=== PATIENT | female | born 1965 | race Caucasian/White ===

== ENCOUNTER 2024-03-25 12:08 | Emergency (ER) | payer OTHER, SELFPAY ==
[2024-03-25] VITALS (10 sets, daily range): BP systolic 140–168; BP diastolic 67–86; PULSE 78–102; RESP 7–18; TEMP 36.5; O2SAT 94–100; BMI 34.3
--- NOTE | 2024-03-25 12:19 | DI.RAD.S_ITS ---
PROCEDURE: XR CHEST 1V INDICATIONS: Shortness of breath TECHNIQUE: One view of the chest was acquired. COMPARISON: None. FINDINGS: Surgical changes and devices: None. Lungs and pleura: Minimal left basilar atelectasis and or infiltrate Mediastinum: Mediastinal contours appear normal. Heart size is normal. Bones and chest wall: No suspicious bony lesions. Overlying soft tissues appear unremarkable. IMPRESSION: Minimal left basilar atelectasis and or infiltrate Approved by: Micheal Mariscal M.D. on 03/25/2024 at 11:59
--- NOTE | 2024-03-25 12:24 | EKG_ITS ---
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
[2024-03-25 12:43] LABS: Prothrombin Time 11.6 SECONDS (9.4-12.5)
[2024-03-25 12:46] LABS: Add Manual Diff / Slide Review NO; Basophils Absolute Auto 100 /uL (0-100); Basophils Percent Auto 1.2 % (0-2); Eosinophils Absolute Auto 200 /uL (0-450); Eosinophils Percent Auto 2.8 % (2-4); Hematocrit 41.5 % (36-46); Hemoglobin 13.7 g/dL (12.0-16.0); Lymphocytes Absolute Auto 800 /uL (1100-4500); Lymphocytes Percent Auto 14.5 % (25-40); Mean Corpuscular HGB Conc 33.1 % (30-36); Mean Corpuscular Hemoglobin 29.2 PG (26-34); Mean Corpuscular Volume 88.3 fL (80-100); Monocytes Absolute Auto 600 /uL (0-900); Monocytes Percent Auto 11.5 % (3-14); Neutrophils Absolute Auto 3900 /uL (1500-7000); Platelet Count 319 X10^3/uL (150-400); Red Blood Cell Count 4.71 X10^6/uL (4.0-5.2); Red Cell Distribution Width 13.7 % (11.6-14.8); White Blood Cell Count 5.6 X10^3/uL (4.5-11.0)
[2024-03-25 12:54] LABS: Alanine Aminotransferase 38 IU/L (<35); Albumin 4.9 g/dL (3.5-5.0); Albumin Globulin Ratio 1.4 (1.0-2.8); Alkaline Phosphatase 69 U/L (38-126); Aspartate Aminotransferase 32 IU/L (14-36); BUN Creatinine Ratio 26.8 (6-22); Bilirubin Total 0.4 mg/dL (0.2-1.3); Blood Urea Nitrogen 22 mg/dL (7-17); Calcium 9.9 mg/dL (8.4-10.2); Carbon Dioxide 27 mmol/L (22-32); Chloride 106 mmol/L (98-107); Estimated Glomerular Filt Rate > 60 mL/min (>60); Globulin 3.4 g/dL (1.7-4.1); Glucose 103 mg/dL (70-100); HEMOLYSIS < 15 (0-50); Lactate (Lactic Acid) 1.5 mmol/L (0.7-2.1); Potassium 4.2 mmol/L (3.4-5.1); Sodium 141 mmol/L (137-145); Total Protein 8.3 g/dL (6.3-8.2)
[2024-03-25 13:06] LABS: NT-proBNP (BNP-Adult 18+) 50 pg/mL (<125); Troponin I < 0.012 ng/mL (0.01-0.034)
--- NOTE | 2024-03-25 13:45 | ED.SOB ---
HPI - SOB/Dyspnea General Chief Complaint: Shortness of Breath/Dyspnea Stated Complaint: SOB, AMS Time Seen by Provider: 03/25/24 13:43 Source: patient, family, RN notes reviewed and old records reviewed Mode of arrival: Wheelchair Limitations: no limitations History of Present Illness HPI Narrative: 59-year-old female history of hypertension, asthma on Symbicort daily. Patient presents with complaint of increased tightness and wheezing feeling similar to her asthma exacerbations. States she has had subjective fevers at home not a lot of nasal congestion but has had a cough she states not really productive. No chest pain but does feel tight and wheezy in her chest like when she was had other asthma exacerbations. No nausea no vomiting. No diarrhea or constipation. Has a little bit of lower abdominal cramping. No dysuria urgency or frequency. States had a headache after she had her nasal swab but was not headaches before. Her and her significant other notes she seemed a little bit confused today could not really tell if she was awake or asleep this morning but has been conversant and normal this afternoon. Patient states she was never been hospitalized for her asthma but has been long stays in the emergency department before. States she was on Effexor XR 150 mg daily, lisinopril 10 mg daily and Zyrtec once daily. She was Symbicort daily and albuterol as needed. States she has been using it 3 or 4 times daily recently. No tobacco use but had secondhand exposure for about 23 years going up. Patient has had multiple surgeries for cervical cancer, bladder rupture appendectomy and joint and ligament tendon issues but no prior cardiac or lung surgeries. Reports an allergy to sulfa, cephalexin and voids tramadol secondary to SSRI usage. Denies any regular alcohol or recreational drugs. Patient does not currently have a local primary care physician has recently moved to the area. Related Data Previous Rx's Medication Instructions Recorded albuterol sulfate 2.5 mg/3 mL 2.5 mg (3 mL) inhalation Q4H PRN 03/25/24 (0.083 %) solution for nebulization shortness of breath or wheezing #90 mL azithromycin 250 mg tablet See Rx Instructions PO .COMPLEX #6 03/25/24 tabs benzonatate 200 mg capsule 200 mg PO TID PRN cough #14 caps 03/25/24 ipratropium 0.5 mg-albuterol 3 mg 3 ml inhalation QID PRN shortness 03/25/24 (2.5 mg base)/3 mL nebulization of breath or wheezing #90 mL soln nebulizer accessories #1 ea 03/25/24 prednisone 10 mg tablets in a dose See Rx Instructions PO .COMPLEX 03/25/24 pack #21 ea Allergies Allergy/AdvReac Type Severity Reaction Status Date / Time cephalexin [From Keflex] AdvReac Verified 03/25/24 12:12 morphine AdvReac Verified 03/25/24 12:12 Sulfa (Sulfonamide AdvReac Verified 03/25/24 12:12 Antibiotics) tramadol AdvReac Verified 03/25/24 12:13 Review of Systems Review of Systems ROS Unobtainable: All systems reviewed & are unremarkable except as noted in HPI and below Patient History Social History Smoking Status: Never smoker Smoking Status: Never smoker Exam Narrative Exam Narrative: GENERAL: Alert and oriented x three, female in mild distress HEENT: Head normocephalic, atraumatic, EOMI, pupils reactive, face symmetric, moist mucous membranes NECK: Supple, full range of motion CARDIOVASCULAR: Regular rate and rhythm without murmurs, rubs or gallops. No JVD. No edema bilateral lower extremities. RESPIRATORY: Breath sounds present bilaterally slightly decreased,, no wheezes rales or rhonchi. No tachypnea accessory muscle use. Patient speaks in full sentences. ABDOMEN: Soft, nontender. Normoactive bowel sounds all 4 quadrants. No guarding or rebound, rigidity, no mass : No CVA tenderness EXTREMITIES: Normal range of motion, no clubbing or edema. Neurovascularly intact NEUROLOGICAL: Cranial nerves II through XII grossly intact. Moving all extremities SKIN: Warm, dry, no petechiae, no rashes or lesions. Initial Vital Signs Initial Vital Signs: Vital Signs Temperature 97.7 F 03/25/24 12:13 Pulse Rate 87 03/25/24 12:13 Respiratory Rate 18 03/25/24 12:13 Blood Pressure 168/86 H 03/25/24 12:13 Pulse Oximetry 97 03/25/24 12:13 Oxygen Delivery Method Room Air 03/25/24 12:13 Course Orders Ordered: ED Orders 03/25/24 12:19 XR chest 1V Stat EKG-12 Lead Stat Measure peak expiratory flow ONCE RT Consult Eval and Treat NOW 03/25/24 12:30 Complete Blood Count AUTO DIFF Stat Comprehensive Metabolic Panel Stat Lactate (Lactic Acid) Stat NT-proBNP (BNP-Adult 18+) Stat Prothrombin Time INR Stat Troponin I Stat 03/25/24 12:45 Covid-19 + FLU A/B + RSV - PCR Stat Discontinued Medications Albuterol (Albuterol 2.5 Mg/3 Ml Neb (Adult)) 2.5 mg INH NOW ONE Stop: 03/25/24 15:16 Last Admin: 03/25/24 15:19 Dose: 2.5 mg Documented By: JOVANA Albuterol/Ipratropium (Albuterol/Ipratropium 3 Ml Ampul) 3 ml INH NOW ONE Stop: 03/25/24 14:24 Last Admin: 03/25/24 14:27 Dose: 3 ml Documented By: JOVANA Azithromycin (Azithromycin 250 Mg Tablet) 500 mg PO NOW ONE Stop: 03/25/24 14:24 Last Admin: 03/25/24 14:45 Dose: 500 mg Documented By: ROSE MARY Methylprednisolone (Methylprednisolone 125 Mg/2 Ml Vial) 125 mg IV NOW ONE Stop: 03/25/24 14:24 Last Admin: 03/25/24 14:45 Dose: 125 mg Documented By: ROSE MARY Vital Signs Vital signs: Vital Signs - 8 hr 03/25/24 12:13 03/25/24 12:34 03/25/24 12:34 Temperature 97.7 F Pulse Rate 87 78 Respiratory Rate 18 Blood Pressure 168/86 H 162/81 H Pulse Oximetry 97 97 Oxygen Delivery Method Room Air 03/25/24 13:00 03/25/24 13:00 03/25/24 13:30 Temperature Pulse Rate 85 Respiratory Rate 10 L Blood Pressure 149/77 H 147/81 H Pulse Oximetry 99 Oxygen Delivery Method 03/25/24 13:30 03/25/24 14:00 03/25/24 14:00 Temperature Pulse Rate 81 85 Respiratory Rate 7 L 10 L Blood Pressure 146/72 H Pulse Oximetry 97 97 Oxygen Delivery Method 03/25/24 14:30 03/25/24 14:31 03/25/24 14:31 Temperature Pulse Rate 82 82 Respiratory Rate 14 14 Blood Pressure 164/82 H Pulse Oximetry 99 100 Oxygen Delivery Method 03/25/24 15:00 03/25/24 15:00 03/25/24 15:30 Temperature Pulse Rate 91 H 93 H Respiratory Rate 14 15 Blood Pressure 140/74 Pulse Oximetry 96 97 Oxygen Delivery Method 03/25/24 15:30 03/25/24 16:00 03/25/24 16:00 Temperature Pulse Rate 102 H Respiratory Rate 14 Blood Pressure 152/70 H 143/67 H Pulse Oximetry 94 Oxygen Delivery Method MDM - SOB/Dyspnea Lab Data 03/25/24 12:30 03/25/24 12:30 Labs: Lab Results 03/25/24 03/25/24 Range/Units 12:30 12:45 WBC 5.6 (4.5-11.0) X10^3/uL RBC 4.71 (4.0-5.2) X10^6/uL Hgb 13.7 (12.0-16.0) g/dL Hct 41.5 (36-46) % MCV 88.3 (80-100) fL MCH 29.2 (26-34) PG MCHC 33.1 (30-36) % RDW 13.7 (11.6-14.8) % Plt Count 319 (150-400) X10^3/uL Neut % (Auto) 70.0 (50-75) % Lymph % (Auto) 14.5 L (25-40) % [place] % (Auto) 11.5 (3-14) % Eos % (Auto) 2.8 (2-4) % Baso % (Auto) 1.2 (0-2) % Neut # (Auto) 3900 (0894-7789) /uL Lymph # (Auto) 800 L (4660-4465) /uL [place] # (Auto) 600 (0-900) /uL Eos # (Auto) 200 (0-450) /uL Baso # (Auto) 100 (0-100) /uL PT 11.6 (9.4-12.5) SECONDS INR 1.0 (0.9-1.3) Sodium 141 (137-145) mmol/L Potassium 4.2 (3.4-5.1) mmol/L Chloride 106 (98-107) mmol/L Carbon Dioxide 27 (22-32) mmol/L BUN 22 H (7-17) mg/dL Creatinine 0.82 (0.52-1.04) mg/dL Estimated GFR > 60 (>60) mL/min BUN/Creatinine Ratio 26.8 H (6-22) Glucose 103 H (70-100) mg/dL Lactate 1.5 (0.7-2.1) mmol/L Calcium 9.9 (8.4-10.2) mg/dL Total Bilirubin 0.4 (0.2-1.3) mg/dL AST 32 (14-36) IU/L ALT 38 H (<35) IU/L Alkaline Phosphatase 69 (38-126) U/L Troponin I < 0.012 (0.01-0.034) ng/mL NT-Pro-B Natriuret Pep 50 (<125) pg/mL Total Protein 8.3 H (6.3-8.2) g/dL Albumin 4.9 (3.5-5.0) g/dL Globulin 3.4 (1.7-4.1) g/dL Albumin/Globulin Ratio 1.4 (1.0-2.8) SARS-CoV-2 (PCR) Negative (Negative) Influenza A (RT-PCR) Flu a negative (NEGATIVE) Influenza B (RT-PCR) Flu b negative (NEGATIVE) RSV (PCR) Negative (Negative) Imaging Data Chest x-ray: Radiologist's Impression: Close Chest X-Ray (Signed) Micheal Mariscal - 03/25/24 [place] [address] XRay Report Signed Patient: Guera Bear MR#: [id number] : 1965 Acct:[id number] Age/Sex: 59 / F Date of Service: 03/25/24 Loc: ED Accession Number: [id number] Procedure: XR chest 1V Ordering Provider: Dennise Retana D.O. PROCEDURE: XR CHEST 1V INDICATIONS: Shortness of breath TECHNIQUE: One view of the chest was acquired. COMPARISON: None. FINDINGS: Surgical changes and devices: None. Lungs and pleura: Minimal left basilar atelectasis and or infiltrate Mediastinum: Mediastinal contours appear normal. Heart size is normal. Bones and chest wall: No suspicious bony lesions. Overlying soft tissues appear unremarkable. IMPRESSION: Minimal left basilar atelectasis and or infiltrate Approved by: Micheal Mariscal M.D. on 03/25/2024 at 11:59 ECG Data Attestation: I personally reviewed and interpreted this ECG as follows: Prior ECG tracings: not available for review Interpretation: Sinus rhythm rate 85 [place] 184 QRS of 90 QTC of 449, no acute ST elevation nonspecific change. No prior for comparison. MDM Narrative Medical decision making narrative: Exam patient does have air movement, minimal wheeze had albuterol and DuoNeb had improvement in symptoms she was also given Solu-Medrol as well as azithromycin for pneumonia. EKG shows sinus rhythm nonspecific change no priors for comparison. Chest x-ray shows minimal left basilar atelectasis and/or infiltrate. White count of 5.6 hemoglobin of 13, platelets of 319. INR 1. Sodium is 141 potassium 4.2 chloride 106 CO2 of 27 BUN 22 creatinine 0.82 glucose of 103 lactate 1 point ALT is 38 but normal AST, bilirubin is normal. Troponin less than 0.012 with a BNP of 50. COVID/influenza/RSV is negative. Patient's vitals show no hypoxia, no fever no tachycardia, patient's lab workup is overall reassuring chest x-ray shows possible infiltrate on the left with shortness of breath would treat for pneumonia. Patient's COVID/influenza/RSV is negative. Patient has allergies reported cephalexin and sulfa as well as narcotics. Patient is alert, appropriate here in the department. She has not particularly wheezy on exam but suspect her pneumonia is exacerbating her reactive airway/asthma. Patient was given neb treatment here, antibiotics as well as steroids. Plan for treatment pneumonia with antibiotics but we will also give a course of oral steroid. Patient does have her inhaler still on plenty of Symbicort. She has a other medications as well. States she does not have a spacer at home so we will provide this with teaching. She is interested in a nebulizer but seems to be doing well with the inhalers but we will send a prescription for nebulized albuterol and nebulizer to see if insurance will cover. Patient requests prescription for DuoNeb as well as Tesfrank Davidson. Discharge Plan Departure Patient Disposition: Home Clinical Impression: Asthma with exacerbation, Pneumonia Instructions: DI for Pneumonia -- Adult Activity Restrictions/Additional Instructions: You appear appear to have little bit of pneumonia on your left side this is likely exacerbating your asthma. Please take oral antibiotics until completed. Take oral steroids completed as well. Continue to use inhalers as needed. Prescription sent to [facility] in [place]. Please return if you are having worsening symptoms, persistent fevers, new or worsening abdominal or chest pain, increasing difficulty with breathing, vomiting, if you are not responding to any albuterol, new swelling of your extremities or other new or concerning changes. Prescriptions: New azithromycin 250 mg tablet See Rx Instructions .ROUTE .COMPLEX Qty: 6 0RF Rx Instructions: For 250 mg dose pack: take 500 mg today (day 1), then 250 mg for 4 days (days 2-5) prednisone 10 mg tablets,dose pack See Rx Instructions .ROUTE .COMPLEX Qty: 21 0RF Rx Instructions: orally per package directions albuterol sulfate 2.5 mg /3 mL (0.083 %) solution for nebulization 2.5 mg inhalation Q4H PRN (Reason: shortness of breath or wheezing) Qty: 90 0RF (DME) nebulizer accessories Misc See Rx Instructions .Route Qty: 1 0RF Rx Instructions: As directed benzonatate 200 mg capsule 200 mg PO TID PRN (Reason: cough) Qty: 14 0RF ipratropium-albuterol 0.5 mg-3 mg(2.5 mg base)/3 mL solution for nebulization 3 ml inhalation QID PRN (Reason: shortness of breath or wheezing) Qty: 90 0RF Stand Alone Forms: Patient Portal/API/Survey, Work Release Note
[2024-03-25 13:46] LABS: Influenza A - CEPHEID Flu A NEGATIVE (NEGATIVE); Influenza B - CEPHEID Flu B NEGATIVE (NEGATIVE); Respiratory Syncytial Virus Negative (Negative)
[2024-03-25 13:48] LABS: COVID-19 CEPHEID 4-PLEX PCR Negative (Negative)
[2024-03-25] MEDS: ALBUTEROL/IPRATROPIUM 3 ML AMPUL INH (14:27)
[2024-03-25] MEDS: AZITHROMYCIN 250 MG TABLET 500 MG PO (14:45)
[2024-03-25] MEDS: methylPREDNISolone 125 MG/2 ML VIAL IV (14:45)
[2024-03-25] MEDS: ALBUTEROL 2.5 MG/3 ML NEB (ADULT) INH (15:19)
== END 2024-03-25 16:28 | disposition home or self-care (01) ==
PROVIDERS: Emergency Provider Emergency Medicine
DX: J18.9 Pneumonia, unspecified organism (principal); J45.901 Unspecified asthma with (acute) exacerbation; R07.9 Chest pain, unspecified; I10 Essential (primary) hypertension; Z88.2 Allergy status to sulfonamides
CPT/HCPCS: 0241U; 36415; 71045; 80053; 83605; 83880; 84484; 85025; 85610; 93005; 94640; 96374; 99284; J2919; J7613